=== PATIENT | male | born 1980 | race Caucasian/White ===

== ENCOUNTER 2019-01-16 09:10 | Observation (INO) | payer OTHER ==
[2019-01-16] MEDS ORDERED: Sodium Chloride 0.9% 1,000 ML IV ONE (09:21)
[2019-01-16] MEDS ORDERED: Aspirin 81 MG Tab.Chew PO ONE (09:21)
[2019-01-16] MEDS ORDERED: Nitroglycerin 2% Oint 1 GM UD Packet TOP ONE (09:21)
[2019-01-16] MEDS ORDERED: Sodium Chloride 0.9% 2.5 ML Syringe FLUSH PRN ×2 (09:21→11:47)
[2019-01-16] MEDS ORDERED: Sodium Chloride 0.9% 10 ML Syringe FLUSH PRN ×2 (09:21→11:47)
--- NOTE | 2019-01-16 09:25 | EDM.PDOC ---
ED HPI GENERAL MEDICAL PROBLEM - General Chief Complaint: Chest Pain Stated Complaint: CHEST PAIN Time Seen by Provider: 01/16/19 09:20 - History of Present Illness INITIAL COMMENTS - FREE TEXT/NARRATIVE: HISTORY AND PHYSICAL: History of present illness: The patient is a 38-year-old male with no significant cardiac or pulmonary history who presents with an episode yesterday where he got somewhat dizzy and lightheaded felt like he was "off" and felt like his speech was slightly changed and this episode lasted 1-2 hours and then dissipated and has not returned as far as the speech issues. He says that he slept fine last evening woke up this morning and had a normal morning and went to work and about 2 hours ago was sitting at his desk when he felt dizzy and lightheaded again. He felt like he is vision was blurred and that he might pass out. He did not pass out or blackout and had no speech changes. No weakness or tingling in his extremities. He said he got up to move around which seemed to make him feel better and then he sat back down and he started having vague midsternal chest pain that he rated as an 8/10 which radiated to his neck and his left shoulder. The chest pain has improved and when he arrived here to the ED it was a 3/10 and now laying in the bed on my evaluation it is a 1/10. The patient took no medications for the chest pain. He says he also felt like the chest pain was between his shoulder blades. He has no leg pain or swelling no abdominal complaints and no nausea or vomiting and no recent illnesses such as cough fever chills runny nose or sore throat. He's been eating and drinking normally and says he does drink a lot of caffeine products. He has no history of thyroid problems. He is a former smoker and denies drug use. The patient says that his father had peripheral vascular disease and may of had a cardiac event in his 50s but he is not sure and knows that he has had bypass to his legs only. His mom had a cardiac stent in her 60s. Currently in the ED the patient seems very nervous and says he is nervous about his presenting symptoms but the chest pain is almost completely gone at a 1/10. Again he did not take any medications over- the-counter to help with the discomfort or the pain. When the discomfort started in his chest and his symptoms started he did not have sweatiness nausea vomiting or abdominal pain and was not short of breath Review of systems: As per history of present illness and below otherwise all systems reviewed and negative. Past medical history: As per history of present illness and as reviewed below otherwise noncontributory. Surgical history: As per history of present illness and as reviewed below otherwise noncontributory. Social history: No reported history of drug or alcohol abuse. Family history: As per history of present illness and as reviewed below otherwise noncontributory. Physical exam: General: Well-developed well-nourished overweight man who is nontoxic and seems a little nervous on my evaluation. Vital signs are noted by me HEENT: Atraumatic, normocephalic, pupils reactive, negative for conjunctival pallor or scleral icterus, mucous membranes moist, throat clear, neck supple, nontender, trachea midline. There is no thyromegaly cervical adenopathy or nuchal rigidity Lungs: Clear to auscultation, breath sounds equal bilaterally, chest nontender. Heart: S1S2, regular rhythm slightly tachycardic rate on my evaluation, 100-105 , no overt murmurs, negative for clicks, rubs, or JVD. Abdomen: Soft, nondistended, nontender. Negative for masses or hepatosplenomegaly. NABS Pelvis: Stable nontender. Genitourinary: Deferred. Rectal: Deferred. Extremities: Atraumatic, negative for cords or calf pain. Neurovascular unremarkable. No pedal edema or leg asymmetry Neuro: Awake, alert, oriented. Cranial nerves II through XII unremarkable. Cerebellum unremarkable. Motor and sensory unremarkable throughout. Exam nonfocal. Skin: No overt rashes or lesions and no diaphoresis Diagnostics: EKG CBC CMP lipase INR troponin d-dimer TSH chest x-ray Therapeutics: IV O2 monitor IV fluids aspirin Nitropaste Heart rate is now 84 with the IV fluids so Lopressor will be held at this time. Patient is currently feeling pain-free and all testing results were discussed with the patient and at bedside. He is agreeable for observation admission in light of the presentation and history I will discuss this case with our hospitalist Dr. Fuller and plan for 23 hour observation Impression: Chest pain rule out ACS Definitive disposition and diagnosis as appropriate pending reevaluation and review of above. Chest Pain Score (Numeric/FACES): 3 - Related Data Allergies Allergy/AdvReac Type Severity Reaction Status Date / Time No Known Allergies Allergy Verified 01/16/19 09:14 Home Meds: Home Meds . [No Known Home Meds] 01/16/19 [History] Past Medical History - Past Health History Medical/Surgical History: Denies Medical/Surgical History - Infectious Disease History Infectious Disease History: Reports: None Social & Family History - Family History Family Medical History: Noncontributory - Tobacco Use Smoking Status *Q: Never Smoker - Caffeine Use Caffeine Use: Reports: Coffee - Recreational Drug Use Recreational Drug Use: No ED ROS GENERAL - Review of Systems Review Of Systems: ROS reveals no pertinent complaints other than HPI. ED EXAM, GENERAL - Physical Exam Exam: See Below (See dictation) Course - Vital Signs Last Recorded V/S: Last Vital Signs Temp 36.2 C 01/16/19 09:15 Pulse 96 01/16/19 09:15 Resp 16 01/16/19 09:15 BP 155/95 H 01/16/19 09:15 Pulse Ox 98 01/16/19 09:15 - Orders/Labs/Meds Orders: Active Orders 24 hr Category Date Time Status Patient Status [ADT] Stat ADT 01/16/19 11:08 Ordered Cardiac Monitoring [RC] . DIRECTED Care 01/16/19 09:20 Active EKG Documentation Completion [RC] STAT Care 01/16/19 09:20 Active Oxygen Therapy, ED [RC] ASDIRECTED Care 01/16/19 09:20 Active Pulse Oximetry [RC] ASDIRECTED Care 01/16/19 09:20 Active Sodium Chloride 0.9% [Saline Flush] Med 01/16/19 09:21 Active 10 ml FLUSH ASDIRECTED PRN Sodium Chloride 0.9% [Saline Flush] Med 01/16/19 09:21 Active 2.5 ml FLUSH ASDIRECTED PRN Saline Lock Insert [OM.PC] Stat Oth 01/16/19 09:20 Ordered Medication Orders Sodium Chloride (Saline Flush) 10 ml FLUSH ASDIRECTED PRN PRN Reason: Keep Vein Open Last Admin: 01/16/19 09:29 Dose: 10 ml Sodium Chloride (Saline Flush) 2.5 ml FLUSH ASDIRECTED PRN PRN Reason: Keep Vein Open Last Admin: 01/16/19 09:29 Dose: 2.5 ml Labs: Laboratory Tests 01/16/19 01/16/19 01/16/19 Range/Units 09:20 09:20 09:20 WBC 4.79 (4.0-11.0) K/uL RBC 4.90 (4.50-5.90) M/uL Hgb 15.4 (13.0-17.0) g/dL Hct 44.1 (38.0-50.0) % MCV 90.0 (80.0-98.0) fL MCH 31.4 (27.0-32.0) pg MCHC 34.9 (31.0-37.0) g/dL RDW Std Deviation 42.9 (28.0-62.0) fl RDW Coeff of Rian 13 (11.0-15.0) % Plt Count 271 (150-400) K/uL MPV 10.60 (7.40-12.00) fL Neut % (Auto) 50.7 (48.0-80.0) % Lymph % (Auto) 37.8 (16.0-40.0) % [place] % (Auto) 8.4 (0.0-15.0) % Eos % (Auto) 2.5 (0.0-7.0) % Baso % (Auto) 0.6 (0.0-1.5) % Neut # (Auto) 2.4 (1.4-5.7) K/uL Lymph # (Auto) 1.8 (0.6-2.4) K/uL [place] # (Auto) 0.4 (0.0-0.8) K/uL Eos # (Auto) 0.1 (0.0-0.7) K/uL Baso # (Auto) 0.0 (0.0-0.1) K/uL Nucleated RBC % 0.0 /100WBC Nucleated RBCs # 0 K/uL INR 0.94 D-Dimer, Quantitative 0.28 (0.0-0.50) mg/L FEU Sodium 139 (136-148) mmol/L Potassium 3.9 (3.5-5.1) mmol/L Chloride 104 (98-107) mmol/L Carbon Dioxide 26.6 (21.0-32.0) mmol/L BUN 18 (7.0-18.0) mg/dL Creatinine 0.9 (0.8-1.3) mg/dL Est Cr Clr Drug Dosing 119.75 mL/min Estimated GFR (MDRD) > 60.0 ml/min Glucose 114 H (74-106) mg/dL Calcium 9.0 (8.5-10.1) mg/dL Total Bilirubin 0.4 (0.2-1.0) mg/dL AST 19 (15-37) IU/L ALT 26 (14-63) IU/L Alkaline Phosphatase 73 (46-116) U/L Troponin I < 0.050 (0.000-0.056) ng/mL Total Protein 7.5 (6.4-8.2) g/dL Albumin 4.1 (3.4-5.0) g/dL Globulin 3.4 (2.6-4.0) g/dL Albumin/Globulin Ratio 1.2 (0.9-1.6) Lipase 155 (73-393) U/L TSH 3rd Generation 1.65 (0.36-3.74) uIU/mL Meds: Medications Generic Name Dose Route Start Last Admin Trade Name Freq PRN Reason Stop Dose Admin Sodium Chloride 10 ml 01/16/19 09:21 01/16/19 09:29 Saline Flush FLUSH 10 ml ASDIRECTED PRN Administration Keep Vein Open Sodium Chloride 2.5 ml 01/16/19 09:21 01/16/19 09:29 Saline Flush FLUSH 2.5 ml ASDIRECTED PRN Administration Keep Vein Open Discontinued Medications Generic Name Dose Route Start Last Admin Trade Name Freq PRN Reason Stop Dose Admin Aspirin 324 mg 01/16/19 09:21 01/16/19 09:28 Aspirin PO 01/16/19 09:22 324 mg ONETIME ONE Administration Sodium Chloride 1,000 mls @ 999 mls/hr 01/16/19 09:21 01/16/19 09:28 Normal Saline IV 01/16/19 10:21 999 mls/hr STAT ONE Administration Nitroglycerin 1 gm 01/16/19 09:21 01/16/19 09:29 Nitro-Bid 2% TOP 01/16/19 09:22 1 gm ONETIME ONE Administration Departure - Departure Time of Disposition: 11:11 Disposition: Refer to Observation Condition: Good Clinical Impression: Chest pain Qualifiers: Chest pain type: unspecified Qualified Code(s): R07.9 - Chest pain, unspecified - Discharge Information Referrals: Aris Alicea MD [Primary Care Provider] - Forms: ED Department Discharge - My Orders Last 24 Hours: My Active Orders 01/16/19 09:20 Cardiac Monitoring [RC] . DIRECTED EKG Documentation Completion [RC] STAT Oxygen Therapy, ED [RC] ASDIRECTED Pulse Oximetry [RC] ASDIRECTED Saline Lock Insert [OM.PC] Stat 01/16/19 09:21 Sodium Chloride 0.9% [Saline Flush] 10 ml FLUSH ASDIRECTED PRN Sodium Chloride 0.9% [Saline Flush] 2.5 ml FLUSH ASDIRECTED PRN 01/16/19 11:08 Patient Status [ADT] Stat - Assessment/Plan Last 24 Hours: My Active Orders 01/16/19 09:20 Cardiac Monitoring [RC] . DIRECTED EKG Documentation Completion [RC] STAT Oxygen Therapy, ED [RC] ASDIRECTED Pulse Oximetry [RC] ASDIRECTED Saline Lock Insert [OM.PC] Stat 01/16/19 09:21 Sodium Chloride 0.9% [Saline Flush] 10 ml FLUSH ASDIRECTED PRN Sodium Chloride 0.9% [Saline Flush] 2.5 ml FLUSH ASDIRECTED PRN 01/16/19 11:08 Patient Status [ADT] Stat
[2019-01-16 10:00] LABS: CHLORIDE,CL 104 mmol/L (98-107); SODIUM,NA 139 mmol/L (136-148)
--- NOTE | 2019-01-16 10:02 | CR ---
INDICATION: Pain and shortness of breath. TECHNIQUE: Chest 1 view. COMPARISON: None FINDINGS: Cardiovascular and mediastinum: Heart size and vasculature are normal in caliber and appearance. Mediastinum is within normal limits. Lungs and pleural space: Lungs are clear. No sign of infiltrate or mass. No sign of pleural effusion. No pneumothorax. Bones and soft tissues: No significant findings. IMPRESSION: Unremarkable chest. Dictated by Dayo Juarez MD @ Jan 16 2019 9:59AM Signed by Dr. Dayo Juarez @ Jan 16 2019 10:00AM
[2019-01-16] MEDS ORDERED: Temazepam 15 MG Cap PO PRN (11:47)
[2019-01-16] MEDS ORDERED: Docusate Sodium 100 MG Cap PO PRN (11:47)
[2019-01-16] MEDS ORDERED: oxyCODONE 5 MG Tab PO PRN (11:47)
[2019-01-16] MEDS ORDERED: Ondansetron 4 MG Tab.DIS PO PRN (11:47)
--- NOTE | 2019-01-16 11:54 | PCM.HP ---
H&P History of Present Illness - General Date of Service: 01/16/19 Admit Problem/Dx: Admission Diagnosis/Problem Admission Diagnosis/Problem Chest pain Source of Information: Patient, Family History Limitations: Reports: No Limitations - History of Present Illness Initial Comments - Free Text/Narative: The patient is an otherwise healthy 38-year-old gentleman who had presented to the emergency department today with complaint of chest pain. Prior to presentation the patient reports that he has been feeling somewhat ill at ease with inability to concentrate, general fatigue and malaise. The patient reports that he had started to develop chest pain this morning which was on the left side of his chest and also appeared to radiate to his left shoulder and left arm. The patient says that the pain is improved with rest. No specific aggravating or triggering events for the chest pain. He is also denied any other associated symptoms such as sweating, nausea or vomiting but, has had some dizziness. Interestingly, both patient and his had a viral type syndrome last week. The symptoms of this have resolved. He has been in otherwise good health and he takes no medications. No family history of heart disease although he has a family history of diabetes. Onset of Symptoms: Reports: Today Duration of Symptoms: Reports: Hour(s):, Improving Location: Reports: Chest Quality: Reports: Ache, Stabbing Severity: Moderate Improves with: Reports: None Worsens with: Reports: None Context: Reports: Sick Contact Associated Symptoms: Reports: No Other Symptoms Chest Pain Score (Numeric/FACES): 3 - Related Data Allergies/Adverse Reactions: Allergies Allergy/AdvReac Type Severity Reaction Status Date / Time No Known Allergies Allergy Verified 01/16/19 09:14 Home Medications: Home Meds . [No Known Home Meds] 01/16/19 [History] Past Medical History - Past Health History Medical/Surgical History: Denies Medical/Surgical History HEENT History: Reports: None Cardiovascular History: Reports: None Respiratory History: Reports: None Gastrointestinal History: Reports: None Genitourinary History: Reports: None Musculoskeletal History: Reports: None Neurological History: Reports: None Psychiatric History: Reports: None Endocrine/Metabolic History: Reports: Obesity/BMI 30+ Hematologic History: Reports: None Immunologic History: Reports: None Oncologic (Cancer) History: Reports: None Dermatologic History: Reports: None - Infectious Disease History Infectious Disease History: Reports: None Social & Family History - Family History Family Medical History: Noncontributory - Tobacco Use Smoking Status *Q: Never Smoker - Caffeine Use Caffeine Use: Reports: Coffee - Recreational Drug Use Recreational Drug Use: No - Living Situation & Occupation Living situation: Reports: , with Spouse Occupation: Employed H&P Review of Systems - Review of Systems: Review Of Systems: See Below General: Reports: Weakness HEENT: Reports: No Symptoms Pulmonary: Reports: No Symptoms Cardiovascular: Reports: Chest Pain Gastrointestinal: Reports: No Symptoms Genitourinary: Reports: No Symptoms Musculoskeletal: Reports: No Symptoms Skin: Reports: No Symptoms Psychiatric: Reports: No Symptoms Neurological: Reports: No Symptoms Hematologic/Lymphatic: Reports: No Symptoms Immunologic: Reports: No Symptoms Exam - Exam Exam: See Below - Vital Signs Vital Signs: Last Vital Signs Temp 36.2 C 01/16/19 09:15 Pulse 96 01/16/19 09:15 Resp 16 01/16/19 09:15 BP 155/95 H 01/16/19 09:15 Pulse Ox 98 01/16/19 09:15 Weight: 124.1 kg - Exam Quality Assessment: No: Supplemental Oxygen General: Alert, Oriented, Cooperative HEENT: Conjunctiva Clear, EACs Clear, Hearing Intact, Mucosa Moist & [place], Nares Patent, PERRLA Neck: Supple, Trachea Midline Lungs: Clear to Auscultation, Normal Respiratory Effort Cardiovascular: Regular Rate, Regular Rhythm GI/Abdominal Exam: Normal Bowel Sounds, Soft, Non-Tender, No Distention (Male) Exam: Deferred Rectal (Males) Exam: Deferred Back Exam: Normal Inspection, Full Range of Motion Extremities: Normal Inspection, Normal Range of Motion, No Pedal Edema Skin: Warm, Dry, Intact Neurological: Cranial Nerves Intact, Normal Gait Neuro Extensive - Mental Status: Alert, Oriented x3 Neuro Extensive - Motor, Sensory, Reflexes: CN II-XII Intact Psychiatric: Alert, Normal Affect, Normal Mood - Patient Data Lab Results Last 24 hrs: Laboratory Results - last 24 hr 01/16/19 01/16/19 01/16/19 Range/Units 09:20 09:20 09:20 WBC 4.79 (4.0-11.0) K/uL RBC 4.90 (4.50-5.90) M/uL Hgb 15.4 (13.0-17.0) g/dL Hct 44.1 (38.0-50.0) % MCV 90.0 (80.0-98.0) fL MCH 31.4 (27.0-32.0) pg MCHC 34.9 (31.0-37.0) g/dL RDW Std Deviation 42.9 (28.0-62.0) fl RDW Coeff of Rian 13 (11.0-15.0) % Plt Count 271 (150-400) K/uL MPV 10.60 (7.40-12.00) fL Neut % (Auto) 50.7 (48.0-80.0) % Lymph % (Auto) 37.8 (16.0-40.0) % [place] % (Auto) 8.4 (0.0-15.0) % Eos % (Auto) 2.5 (0.0-7.0) % Baso % (Auto) 0.6 (0.0-1.5) % Neut # (Auto) 2.4 (1.4-5.7) K/uL Lymph # (Auto) 1.8 (0.6-2.4) K/uL [place] # (Auto) 0.4 (0.0-0.8) K/uL Eos # (Auto) 0.1 (0.0-0.7) K/uL Baso # (Auto) 0.0 (0.0-0.1) K/uL Nucleated RBC % 0.0 /100WBC Nucleated RBCs # 0 K/uL INR 0.94 D-Dimer, Quantitative 0.28 (0.0-0.50) mg/L FEU Sodium 139 (136-148) mmol/L Potassium 3.9 (3.5-5.1) mmol/L Chloride 104 (98-107) mmol/L Carbon Dioxide 26.6 (21.0-32.0) mmol/L BUN 18 (7.0-18.0) mg/dL Creatinine 0.9 (0.8-1.3) mg/dL Est Cr Clr Drug Dosing 119.75 mL/min Estimated GFR (MDRD) > 60.0 ml/min Glucose 114 H (74-106) mg/dL Calcium 9.0 (8.5-10.1) mg/dL Total Bilirubin 0.4 (0.2-1.0) mg/dL AST 19 (15-37) IU/L ALT 26 (14-63) IU/L Alkaline Phosphatase 73 (46-116) U/L Troponin I < 0.050 (0.000-0.056) ng/mL Total Protein 7.5 (6.4-8.2) g/dL Albumin 4.1 (3.4-5.0) g/dL Globulin 3.4 (2.6-4.0) g/dL Albumin/Globulin Ratio 1.2 (0.9-1.6) Lipase 155 (73-393) U/L TSH 3rd Generation 1.65 (0.36-3.74) uIU/mL Result Diagrams: 01/16/19 09:20 01/16/19 09:20 EKG INTERPRETATION EKG Date: 01/16/19 Rhythm: NSR [place]: Normal P-Wave: Present QRS: Normal ST-T: Normal QT: Normal Comparison: NA - No Prior EKG - Problem List (1) Chest pain SNOMED Code(s): 32023363 ICD Code: R07.9 - CHEST PAIN, UNSPECIFIED Status: Acute Priority: High Current Visit: Yes Qualifiers: Chest pain type: unspecified Qualified Code(s): R07.9 - Chest pain, unspecified (2) Obesity (BMI 35.0-39.9 without comorbidity) SNOMED Code(s): 161878931, 708100618 ICD Code: E66.9 - OBESITY, UNSPECIFIED Status: Chronic Priority: High Current Visit: Yes Problem List Initiated/Reviewed/Updated: Yes Orders Last 24hrs: Active Orders 24 hr Category Date Time Status Patient Status [ADT] Stat ADT 01/16/19 11:08 Active Ambulate [RC] PER UNIT ROUTINE Care 01/16/19 11:48 Active Cardiac Monitoring [RC] . DIRECTED Care 01/16/19 09:20 Active Cardiac Monitoring [RC] CONTINUOUS Care 01/16/19 11:48 Active EKG Documentation Completion [RC] AM Care 01/17/19 08:00 Active Oxygen Therapy [RC] PRN Care 01/16/19 11:47 Active Up ad [place] [RC] ASDIRECTED Care 01/16/19 11:47 Active VTE/DVT Education [RC] PER UNIT ROUTINE Care 01/16/19 11:47 Active Vital Signs [RC] Q4H Care 01/16/19 11:47 Active Heart Healthy Diet [DIET] Diet 01/16/19 Dinner Active BASIC METABOLIC PANEL,BMP [CHEM] AM Lab 01/17/19 05:11 Ordered CBC WITH AUTO DIFF [HEME] AM Lab 01/17/19 05:11 Ordered TROPONIN I [CHEM] Q6H Lab 01/16/19 11:47 Ordered TROPONIN I [CHEM] Q6H Lab 01/16/19 17:47 Ordered Acetaminophen [Tylenol] Med 01/16/19 11:47 Active 650 mg PO Q4H PRN Docusate Sodium [Colace] Med 01/16/19 11:47 Active 100 mg PO BID PRN Ondansetron [Zofran ODT] Med 01/16/19 11:47 Active 4 mg PO Q4H PRN Sodium Chloride 0.9% [Saline Flush] Med 01/16/19 09:21 Active 10 ml FLUSH ASDIRECTED PRN Sodium Chloride 0.9% [Saline Flush] Med 01/16/19 11:47 Active 10 ml FLUSH ASDIRECTED PRN Sodium Chloride 0.9% [Saline Flush] Med 01/16/19 09:21 Active 2.5 ml FLUSH ASDIRECTED PRN Sodium Chloride 0.9% [Saline Flush] Med 01/16/19 11:47 Active 2.5 ml FLUSH ASDIRECTED PRN Temazepam [Restoril] Med 01/16/19 11:47 Active 15 mg PO BEDTIME PRN oxyCODONE Med 01/16/19 11:47 Active 5 mg PO Q4H PRN Saline Lock Insert [OM.PC] Routine Oth 01/16/19 11:47 Ordered Saline Lock Insert [OM.PC] Stat Oth 01/16/19 09:20 Ordered Resuscitation Status Routine Resus Stat 01/16/19 11:47 Ordered Medication Orders Acetaminophen (Tylenol) 650 mg PO Q4H PRN PRN Reason: Pain (Mild 1-3)/fever Docusate Sodium (Colace) 100 mg PO BID PRN PRN Reason: Constipation Ondansetron HCl (Zofran Odt) 4 mg PO Q4H PRN PRN Reason: nausea, able to take PO Oxycodone HCl (Oxycodone) 5 mg PO Q4H PRN PRN Reason: Pain (moderate 4-6) Sodium Chloride (Saline Flush) 10 ml FLUSH ASDIRECTED PRN PRN Reason: Keep Vein Open Last Admin: 01/16/19 09:29 Dose: 10 ml Sodium Chloride (Saline Flush) 2.5 ml FLUSH ASDIRECTED PRN PRN Reason: Keep Vein Open Last Admin: 01/16/19 09:29 Dose: 2.5 ml Sodium Chloride (Saline Flush) 10 ml FLUSH ASDIRECTED PRN PRN Reason: Keep Vein Open Sodium Chloride (Saline Flush) 2.5 ml FLUSH ASDIRECTED PRN PRN Reason: Keep Vein Open Temazepam (Restoril) 15 mg PO BEDTIME PRN PRN Reason: Sleep Assessment/Plan Comment:: The patient is an otherwise healthy 38-year-old gentleman who will be admitted to observation secondary to atypical chest pain. The patient essentially has minimal risk factors at this point. He'll be kept on telemetry. I've ordered repeat troponins 2 more. Patient will also be given heart healthy diet. The patient also has been encouraged to ambulate as a part of DVT prophylaxis. The patient likely will be able to return home tomorrow morning after testing is otherwise negative. I've also ordered repeat PTT in the morning. The patient should've follow-up with her primary care physician with regards to his 37 BMI.
[2019-01-16] MEDS: Acetaminophen 325 MG Tab PO PRN ×2 (17:35→22:57)
--- NOTE | 2019-01-17 09:14 | PCM.DCSUM1 ---
Discharge Summary - Hospital Course Diagnosis: Stroke: No - Discharge Data Discharge Date: 01/18/19 Discharge Disposition: Home, Self-Care 01 Condition: Good - Discharge Diagnosis/Problem(s) (1) Chest pain SNOMED Code(s): 14106205 ICD Code: R07.9 - CHEST PAIN, UNSPECIFIED Status: Resolved Priority: High Qualifiers: Chest pain type: unspecified Qualified Code(s): R07.9 - Chest pain, unspecified (2) Obesity (BMI 35.0-39.9 without comorbidity) SNOMED Code(s): 573767384, 604141455 ICD Code: E66.9 - OBESITY, UNSPECIFIED Status: Chronic Priority: High - Patient Summary/Data Hospital Course: The patient is a 38-year-old gentleman who had presented to the emergency department with a complaint of chest pain. He was also having difficulty with dizziness and lightheadedness. The patient was admitted secondary to atypical chest pain and worked up for this. The patient was more concerned when his left arm and left shoulder started hurting as well. By the time the patient was admitted to hospitalization his pain had resolved. He been treated with nitroglycerin in the emergency department. The patient had minimal to no risk factors except for family history of heart disease and vascular disease. It should be noted that the patient did not have any specific aggravating or triggering events of the chest pain and no relieving factors other than rest. It should be noted that the patient and his had nonspecific viral syndrome one week ago. The patient was kept on telemetry. The patient also had 3 serial troponins which were essentially nondetectable. EKG the following morning had indicated atrial fibrillation however, upon review of the EKG P waves are present but low voltage. The patient had been tolerating his diet. The patient has been recommended to continue with his current heart healthy diet as tolerated. He is also have aspirin 81 mg by mouth daily. The patient should have activity as tolerated as well. He has been recommended to follow-up with the primary care physician. The patient is hemodynamically stable and he is discharged with the recommendations listed above. - Patient Instructions Diet: Heart Healthy Diet Activity: As Tolerated - Discharge Plan *PRESCRIPTION DRUG MONITORING PROGRAM REVIEWED*: No *COPY OF PRESCRIPTION DRUG MONITORING REPORT IN PATIENT KARAN: No Prescriptions/Med Rec: Aspirin 81 mg PO BEDTIME #30 tab.chew Home Medications: Home Meds Aspirin 81 mg PO BEDTIME #30 tab.chew 01/17/19 [Rx] Oxygen Therapy Mode: Room Air Patient Handouts: Nonspecific Chest Pain, [id number], Aspirin and Your Heart Referrals: [facility] [Outside] Aris Alicea MD [Primary Care Provider] - - Discharge Summary/Plan Comment DC Time >30 min.: Yes - General Info Date of Service: 01/18/19 Admission Dx/Problem (Free Text: Admission Diagnosis/Problem Admission Diagnosis/Problem Chest pain Functional Status: Reports: Pain Controlled - Review of Systems General: Reports: No Symptoms HEENT: Reports: No Symptoms Pulmonary: Reports: No Symptoms Cardiovascular: Reports: No Symptoms Gastrointestinal: Reports: No Symptoms Genitourinary: Reports: No Symptoms Musculoskeletal: Reports: No Symptoms Skin: Reports: No Symptoms Neurological: Reports: No Symptoms Psychiatric: Reports: No Symptoms - Patient Data Vitals - Most Recent: Last Vital Signs Temp 36.7 C 01/16/19 23:03 Pulse 64 01/16/19 23:03 Resp 18 01/16/19 23:03 BP 103/55 L 01/16/19 23:03 Pulse Ox 97 01/16/19 23:03 Weight - Most Recent: 124.1 kg I&O - Last 24 hours: Intake & Output 01/16/19 01/17/19 01/17/19 22:59 06:59 14:59 Intake Total 900 Output Total 1200 Balance -300 Lab Results - Last 24 hrs: Laboratory Results - last 24 hr 01/16/19 01/16/19 01/16/19 Range/Units 09:20 09:20 09:20 WBC 4.79 (4.0-11.0) K/uL RBC 4.90 (4.50-5.90) M/uL Hgb 15.4 (13.0-17.0) g/dL Hct 44.1 (38.0-50.0) % MCV 90.0 (80.0-98.0) fL MCH 31.4 (27.0-32.0) pg MCHC 34.9 (31.0-37.0) g/dL RDW Std Deviation 42.9 (28.0-62.0) fl RDW Coeff of Rian 13 (11.0-15.0) % Plt Count 271 (150-400) K/uL MPV 10.60 (7.40-12.00) fL Neut % (Auto) 50.7 (48.0-80.0) % Lymph % (Auto) 37.8 (16.0-40.0) % [place] % (Auto) 8.4 (0.0-15.0) % Eos % (Auto) 2.5 (0.0-7.0) % Baso % (Auto) 0.6 (0.0-1.5) % Neut # (Auto) 2.4 (1.4-5.7) K/uL Lymph # (Auto) 1.8 (0.6-2.4) K/uL [place] # (Auto) 0.4 (0.0-0.8) K/uL Eos # (Auto) 0.1 (0.0-0.7) K/uL Baso # (Auto) 0.0 (0.0-0.1) K/uL Nucleated RBC % 0.0 /100WBC Nucleated RBCs # 0 K/uL INR 0.94 D-Dimer, Quantitative 0.28 (0.0-0.50) mg/L FEU Sodium 139 (136-148) mmol/L Potassium 3.9 (3.5-5.1) mmol/L Chloride 104 (98-107) mmol/L Carbon Dioxide 26.6 (21.0-32.0) mmol/L BUN 18 (7.0-18.0) mg/dL Creatinine 0.9 (0.8-1.3) mg/dL Est Cr Clr Drug Dosing 119.75 mL/min Estimated GFR (MDRD) > 60.0 ml/min Glucose 114 H (74-106) mg/dL Calcium 9.0 (8.5-10.1) mg/dL Total Bilirubin 0.4 (0.2-1.0) mg/dL AST 19 (15-37) IU/L ALT 26 (14-63) IU/L Alkaline Phosphatase 73 (46-116) U/L Troponin I < 0.050 (0.000-0.056) ng/mL Total Protein 7.5 (6.4-8.2) g/dL Albumin 4.1 (3.4-5.0) g/dL Globulin 3.4 (2.6-4.0) g/dL Albumin/Globulin Ratio 1.2 (0.9-1.6) Lipase 155 (73-393) U/L TSH 3rd Generation 1.65 (0.36-3.74) uIU/mL 01/16/19 01/16/19 Range/Units 15:18 21:11 WBC (4.0-11.0) K/uL RBC (4.50-5.90) M/uL Hgb (13.0-17.0) g/dL Hct (38.0-50.0) % MCV (80.0-98.0) fL MCH (27.0-32.0) pg MCHC (31.0-37.0) g/dL RDW Std Deviation (28.0-62.0) fl RDW Coeff of Rian (11.0-15.0) % Plt Count (150-400) K/uL MPV (7.40-12.00) fL Neut % (Auto) (48.0-80.0) % Lymph % (Auto) (16.0-40.0) % [place] % (Auto) (0.0-15.0) % Eos % (Auto) (0.0-7.0) % Baso % (Auto) (0.0-1.5) % Neut # (Auto) (1.4-5.7) K/uL Lymph # (Auto) (0.6-2.4) K/uL [place] # (Auto) (0.0-0.8) K/uL Eos # (Auto) (0.0-0.7) K/uL Baso # (Auto) (0.0-0.1) K/uL Nucleated RBC % /100WBC Nucleated RBCs # K/uL INR D-Dimer, Quantitative (0.0-0.50) mg/L FEU Sodium (136-148) mmol/L Potassium (3.5-5.1) mmol/L Chloride (98-107) mmol/L Carbon Dioxide (21.0-32.0) mmol/L BUN (7.0-18.0) mg/dL Creatinine (0.8-1.3) mg/dL Est Cr Clr Drug Dosing mL/min Estimated GFR (MDRD) ml/min Glucose (74-106) mg/dL Calcium (8.5-10.1) mg/dL Total Bilirubin (0.2-1.0) mg/dL AST (15-37) IU/L ALT (14-63) IU/L Alkaline Phosphatase (46-116) U/L Troponin I < 0.050 < 0.050 (0.000-0.056) ng/mL Total Protein (6.4-8.2) g/dL Albumin (3.4-5.0) g/dL Globulin (2.6-4.0) g/dL Albumin/Globulin Ratio (0.9-1.6) Lipase (73-393) U/L TSH 3rd Generation (0.36-3.74) uIU/mL Med Orders - Current: Current Medications Acetaminophen (Tylenol) 650 mg PO Q4H PRN PRN Reason: Pain (Mild 1-3)/fever Last Admin: 01/16/19 22:57 Dose: 650 mg Docusate Sodium (Colace) 100 mg PO BID PRN PRN Reason: Constipation Ondansetron HCl (Zofran Odt) 4 mg PO Q4H PRN PRN Reason: nausea, able to take PO Oxycodone HCl (Oxycodone) 5 mg PO Q4H PRN PRN Reason: Pain (moderate 4-6) Sodium Chloride (Saline Flush) 10 ml FLUSH ASDIRECTED PRN PRN Reason: Keep Vein Open Last Admin: 01/16/19 09:29 Dose: 10 ml Sodium Chloride (Saline Flush) 2.5 ml FLUSH ASDIRECTED PRN PRN Reason: Keep Vein Open Last Admin: 01/16/19 09:29 Dose: 2.5 ml Sodium Chloride (Saline Flush) 10 ml FLUSH ASDIRECTED PRN PRN Reason: Keep Vein Open Sodium Chloride (Saline Flush) 2.5 ml FLUSH ASDIRECTED PRN PRN Reason: Keep Vein Open Temazepam (Restoril) 15 mg PO BEDTIME PRN PRN Reason: Sleep Discontinued Medications Aspirin (Aspirin) 324 mg PO ONETIME ONE Stop: 01/16/19 09:22 Last Admin: 01/16/19 09:28 Dose: 324 mg Sodium Chloride (Normal Saline) 1,000 mls @ 999 mls/hr IV STAT ONE Stop: 01/16/19 10:21 Last Admin: 01/16/19 09:28 Dose: 999 mls/hr Nitroglycerin (Nitro-Bid 2%) 1 gm TOP ONETIME ONE Stop: 01/16/19 09:22 Last Admin: 01/16/19 09:29 Dose: 1 gm - Exam Quality Assessment: Denies: Supplemental Oxygen General: Reports: Alert, Oriented, Cooperative, No Acute Distress HEENT: Reports: Pupils Equal, Pupils Reactive, EOMI Neck: Reports: Supple, Trachea Midline Lungs: Reports: Clear to Auscultation, Normal Respiratory Effort Cardiovascular: Reports: Regular Rate, Regular Rhythm GI/Abdominal Exam: Normal Bowel Sounds, Soft, No Distention (Male) Exam: Deferred Rectal (Males) Exam: Deferred Back Exam: Reports: Normal Inspection, Full Range of Motion Extremities: Normal Inspection, Normal Range of Motion, No Pedal Edema, Normal Capillary Refill Skin: Reports: Warm, Dry, Intact Neurological: Reports: No New Focal Deficit Psy/Mental Status: Reports: Alert, Normal Affect, Normal Mood
[2019-01-17 09:15] LABS: CHLORIDE,CL 107 mmol/L (98-107); SODIUM,NA 143 mmol/L (136-148)
== END 2019-01-17 09:55 | disposition home or self-care (01) ==
LOC: MW.ED 09:10 → MW.MS 11:08
PROVIDERS: ADMIT Internal Medicine; ATTEND Internal Medicine
DX: R07.89 Other chest pain (principal); E66.9 Obesity, unspecified; Z68.37 Body mass index [BMI] 37.0-37.9, adult; Z79.82 Long term (current) use of aspirin
CPT/HCPCS: 36415; 71045; 80048; 80053; 83690; 84443; 84484; 85025; 85379; 85610; 93005; 96360; 99285; A9270; J7040; 99284; G0378